=== PATIENT | male | born 1965 | race Caucasian/White ===

== ENCOUNTER 2019-02-22 13:00 | Outpatient (RCR) | payer OTHER, SELFPAY | END 2019-02-22 13:05 | disposition home or self-care (01) | LOC: ST 13:00 | PROVIDERS: Visit Provider Physical Medicine & Rehabilitation | DX: S14.129A Central cord syndrome at unspecified level of cervical spinal cord, initial encounter (principal); R13.10 Dysphagia, unspecified; G31.84 Mild cognitive impairment of uncertain or unknown etiology | CPT/HCPCS: 92507; 92523 ==

== ENCOUNTER 2019-02-22 14:00 | Outpatient (RCR) | payer OTHER, SELFPAY | END 2019-02-22 14:05 | disposition home or self-care (01) | LOC: OT 14:00 | PROVIDERS: Visit Provider Physical Medicine & Rehabilitation | DX: S14.129A Central cord syndrome at unspecified level of cervical spinal cord, initial encounter (principal); R13.10 Dysphagia, unspecified; G31.84 Mild cognitive impairment of uncertain or unknown etiology | CPT/HCPCS: 97110; 97165 ==

== ENCOUNTER 2019-02-22 15:00 | Outpatient (RCR) | payer OTHER, SELFPAY | END 2019-02-22 15:05 | disposition home or self-care (01) | LOC: PT 15:00 | PROVIDERS: Visit Provider Physical Medicine & Rehabilitation | DX: S14.129A Central cord syndrome at unspecified level of cervical spinal cord, initial encounter (principal); R13.10 Dysphagia, unspecified; G31.84 Mild cognitive impairment of uncertain or unknown etiology | CPT/HCPCS: 97110; 97163 ==

== ENCOUNTER → 2020-11-12 14:02 | Outpatient (CLI) | payer OTHER, SELFPAY ==
--- NOTE | 2020-11-12 14:07 | CA_ITS ---
APPROVED REPORT Left Lower Extremity Venous Study for DVT. Cell Builder: Vanesa Aaron RVT Indications Lower Extremity Pain: Left Lower Extremity Edema: Left LT CALF PAIN X 4 DAYS,NKI Medications PT ON ELIQUS Vein Imaging CFV (L): compressive, spontaneous, phasic, augmentation FEM (L): Thrombus, Non-Compressible POP (L): Non-Compressible, Thrombus PTV (L): Thrombus, Non-Compressible GSV (L): Compressible Peroneals (L):Thrombus, Non-Compressible GAS (L): Compressible Findings Study suggests DVT of the left femoral, popliteal, posterior tibial and peroneal veins of the left lower extremity. Study suggests no evidence of SVT of the left lower extremity. Conclusion Study suggests DVT of the left femoral, popliteal, posterior tibial and peroneal veins of the left lower extremity. Study suggests no evidence of SVT of the left lower extremity. Critical Notification Physician Notified Date: 11/12/2020 Time: 14:46 Physician Name: Vinny King Electronically signed by : Serafin Chavez MD 11/12/2020 15:10:51
== END ==
PROVIDERS: PCP Family Medicine; Visit Provider Family Medicine
DX: M79.662 Pain in left lower leg (principal); R60.0 Localized edema
CPT/HCPCS: 93971

== ENCOUNTER → 2020-11-15 14:39 | Outpatient (CLI) | payer OTHER, SELFPAY | PROVIDERS: Visit Provider Internal Medicine Medical Oncology | DX: I82.409 Acute embolism and thrombosis of unspecified deep veins of unspecified lower extremity (principal) | CPT/HCPCS: 36415; 81241 ==